=== PATIENT | male | born 1985 | race Caucasian/White ===

== ENCOUNTER → 2019-03-07 | Outpatient (CLI) | payer BC ==
--- NOTE | 2019-03-09 13:53 | CARD ---
MR#: [id number] Date of Study: 03/07/2019 Ordering Physician: EDUARDA YU, Referring Physician: EDUARDA YU, Tech: Brenda Raines APPROVED REPORT EXAM: Two-dimensional and M-mode echocardiogram with Doppler and color Doppler. Other Information Quality : GoodHR: 60bpm Rhythm : Pacemaker INDICATION Arrhythmia Surgery/Intervention Pacemaker: Date: 2005 2D DIMENSIONS RVDd3.1 (2.9-3.5cm)Left Atrium(2D)3.0 (1.6-4.0cm) IVSd1.1 (0.7-1.1cm)Aortic Root(2D)2.8 (2.0-3.7cm) LVDd4.9 (3.9-5.9cm)LVOT Diameter2.1 (1.8-2.4cm) PWd0.8 (0.7-1.1cm)LVDs3.3 (2.5-4.0cm) FS (%) 33.0 %SV70.2 ml LVEF(%)61.3 (>50%) Aortic Valve AoV Peak Scot.135.1cm/sAoV VTI26.3cm AO Peak GR.7.3mmHgLVOT Peak Scot.93.2cm/s AO Mean GR.4mmHgAVA (VMAX)2.32cm2 Mitral Valve MV E Fdiclghx35.4cm/sMV DECEL [id number] MV A Ncrqcrmh62.7cm/sE/A Ratio1.4 Tricuspid Valve TR P. Xzibbgrr257fc/sRAP ECEZAYGS1pnHw TR Peak Gr.68fiOrIQSD77snPg Pulmonary Vein S1 Nwedaakg63.1cm/sD2 Aesvfiwn88.5cm/s PVa [id number] LEFT VENTRICLE The left ventricle is normal size. There is borderline to mild concentric left ventricular hypertroph y. The left ventricular systolic function is normal. The Ejection Fraction is 55%. There is normal LV segmental wall motion. The left ventricular diastolic function and filling is normal for age. RIGHT VENTRICLE The right ventricle is normal size. There is normal right ventricular wall thickness. The right ventr icular systolic function is normal. There is a pacemaker lead in the right ventricle. ATRIA The left atrium size is normal. The right atrium size is normal. There is a pacemaker lead seen in th e right atrium. The interatrial septum is intact with no evidence for an atrial septal defect or dahl nt foramen ovale as noted on 2-D or Doppler imaging. AORTIC VALVE The aortic valve is normal in structure and function. Doppler and Color Flow revealed no significant aortic regurgitation. There is no significant aortic valvular stenosis. MITRAL VALVE The mitral valve is normal in structure and function. There is no evidence of mitral valve prolapse. There is no mitral valve stenosis. Doppler and Color-flow revealed trace mitral regurgitation. TRICUSPID VALVE The tricuspid valve is normal in structure and function. Doppler and Color Flow revealed trace tricus pid regurgitation with an estimated PAP of 29 mmHg. There is no tricuspid valve stenosis. PULMONIC VALVE The pulmonary valve is normal in structure and function. Doppler and Color Flow revealed trace pulmon ic valvular regurgitation. GREAT VESSELS The aortic root is normal in size. The IVC is normal in size and collapses >50% with inspiration. PERICARDIAL EFFUSION There is no evidence of significant pericardial effusion. Critical Notification Critical Value: No <Conclusion> The left ventricular systolic function is normal. The Ejection Fraction is 55%. There is normal LV segmental wall motion. There is a pacemaker lead in RA/RV. Trace mitral regurgitation. Trace tricuspid regurgitation with an estimated PAP of 29 mmHg. There is no evidence of significant pericardial effusion. Signed by : Eduarda Yu, Electronically Approved : 03/07/2019 16:20:44
== END | disposition home or self-care (01) ==
LOC: ECHO 13:23
PROVIDERS: ATTEND Internal Medicine Cardiovascular Disease
DX: I51.7 Cardiomegaly (principal); I49.9 Cardiac arrhythmia, unspecified; Z95.0 Presence of cardiac pacemaker
CPT/HCPCS: 93306

== ENCOUNTER → 2021-07-24 | Outpatient (CLI) | payer SELFPAY ==
[~2021-07-24] VITALS: Ht 193 cm; Wt 99.8 kg
[~2021-07-24] MED LIST: AMIO200T53 PO; IBUP-1060 PO; LIDOCAINE 2%/EPI 1:100,000 20 ML VIAL. IJ ONE; LIDOCAINE 2%/EPI 1:100,000 20 ML VIAL. ONE; MIDAZOLAM HCL/PF 2 MG/2 ML VIAL. IV ONE; MIDAZOLAM HCL/PF 2 MG/2 ML VIAL. ONE; ONDANSETRON PF 4 MG/2 ML VIAL. IVP ONE; ceFAZolin SODIUM 1 GM in IV NORMAL SALINE 100ML 100 ML IRR ONE; fentaNYL PF VIAL 100 MCG/2 ML VIAL IV ONE; fentaNYL PF VIAL 100 MCG/2 ML VIAL ONE
[2021-07-24 09:42] LABS: HEMATOCRIT 45.1 % (39.0-53.0); HEMOGLOBIN 14.9 g/dL (13.0-17.5); RED BLOOD COUNT 5.14 x10^6/uL (4.30-5.70); RED CELL DISTRIBUTION WIDTH 13.4 % (11.5-14.5); WHITE BLOOD COUNT 6.1 x10^3/uL (4.0-11.0)
[2021-07-24 09:53] LABS: PROTHROMBIN TIME PATIENT 12.5 SEC (11.7-14.0)
[2021-07-24 10:11] VITALS: BP 128/66
[2021-07-24 11:54] VITALS: BP 141/62
--- NOTE | 2021-07-24 11:57 | PDOC ---
MODERATE SEDATION ASSESSMENT RISKS/ALTERNATIVES Risks/Alternatives Risks and alternatives of this type of sedation and procedure discussed with: RISK/ALTERNATIVES: Patient H & P ON CHART H & P H & P on chart and reviewed for co-morbid conditions and appropriate labs. H&P ON CHART: Yes STATUS PREG STATUS ASSESSED: N/A MEDS/ALLERGIES REVIEWED Meds/Allergies Reviewed Medications and Allergies including time and route of recently administered narcotics and sedatives. MEDS/ALLERGIES REVIEWED: Yes ASA RATING ASA RATING: II AIRWAY ASSESSMENT Airway Assessment Airway patency, oral function limitations, presence of caps, crowns, dentures, partials, and ability to extend neck assessed. AIRWAY ASSESSMENT: Yes MALLAMPATI SCORE MALLAMPATI SCORE: II PRE-SEDATION ASSESSMENT PRE-SEDATION ASSESSMENT: Yes EDUARDA RIVAS MD Jul 24, 2021 11:57
[2021-07-24 12:00] VITALS: BP 135/73
--- NOTE | 2021-07-24 12:05 | CARD ---
MR#: [id number] Date of Study: 07/24/2021 Ordering Physician: EDUARDA YU, Referring Physician: EDUARDA YU, Tech: APPROVED REPORT PROCEDURES Medtronic dual-chamber permanent pacemaker generator change FLOURO TIME: 0.0 MINUTES DOSE: 0.06 Gycm2 MODERATE SEDATION: 38 MINUTES INDICATIONS Sick sinus syndrome s/p permanent pacemaker implantation presenting with battery depletion PROCEDURE After explaining the risks, benefits, and alternative options, informed consent was obtained from the patient. The patient was brought to the cardiac catheterization lab and the left chest and shoulder were prepp ed and draped in a sterile manner. IV conscious sedation was used throughout procedure with appropriate monitoring and was performed in the presence of a registered nurse who was an independent trained observer other than the physician p erforming the procedure. Specimen(s) Removed: No Estimated Blood loss: 5 cc's. 35 cc of 2% lidocaine was infiltrated into the skin and subcutaneous tissues for local anesthesia. A n incision was made over the previous scar and using blunt dissection and cautery, the pocket was ope mike, capsule exposed and opened and the previously placed generator removed. The leads were detached , interrogated and found to be functioning well and very attached to a Medtronic dual-chamber permane nt pacemaker generator model [id number], serial number [id number]. The device was placed in the pocket t hat was subsequently closed in 3 layers. Hemostasis was secured. The right atrial lead showed a sensing amplitude of 3.1 mV, impedance of 342 ohms and a threshold of 0.75 V. The right ventricular lead showed a sensing amplitude of 6 mV, impedance of 456 ohms and a t hreshold of 1.25 V. Patient tolerated the procedure well. There were no immediate complications. CONCLUSION Successful Medtronic dual-chamber permanent pacemaker generator change for battery depletion Signed by : Eduarda Yu, Electronically Approved : 07/24/2021 12:05:47
[2021-07-24 12:15] VITALS: BP 122/72
[2021-07-24 12:30] VITALS: BP 116/65
[2021-07-24 12:45] VITALS: BP 114/79
== END | disposition home or self-care (01) ==
LOC: CCL 08:52
PROVIDERS: ATTEND Internal Medicine Cardiovascular Disease
DX: Z45.010 Encounter for checking and testing of cardiac pacemaker pulse generator [battery] (principal); I49.5 Sick sinus syndrome; F41.9 Anxiety disorder, unspecified; F32.9 Major depressive disorder, single episode, unspecified; F17.210 Nicotine dependence, cigarettes, uncomplicated; Z79.899 Other long term (current) drug therapy; Z98.890 Other specified postprocedural states; Z72.89 Other problems related to lifestyle; Z88.6 Allergy status to analgesic agent; Z88.8 Allergy status to other drugs, medicaments and biological substances; Z20.822 Contact with and (suspected) exposure to COVID-19
CPT/HCPCS: 33228; 36415; 85027; 85610; 87426; 99152; 99153; C1785; J0690; J2250; J2405; J3010; J3490